=== PATIENT | female | born 1940 | race Caucasian/White ===

== ENCOUNTER 2019-02-28 15:22 | Inpatient (IN) | payer MEDICARE, BC ==
[~2019-02-28] VITALS: Ht 167.6 cm; Wt 96.4 kg
[~2019-02-28 15:22] MED LIST: CARDIZEM CD 24240 MG PO; COUMADIN 3MG3 MG/TAB PO; FEMARA PO; OSCAL 500 TAB500 MG PO; PRILOSEC 20MG20 MG PO; TOPROL XL 50MG50 MG PO; VESICARE 5MG5 MG PO; VITAMIN D1000 IU PO; XARELTO20 MG PO; XGEVA120 MG/1.7 SC; ZOCOR 10MG10 MG PO
[2019-04-12] VITALS (13 sets, daily range): BP systolic 88–129; BP diastolic 37–64; PULSE 49–70; TEMP 9
[2019-04-12] MEDS ORDERED: FASLODEX250 MG/5 M IM (02:31)
[2019-04-12] MEDS ORDERED: KISQALI400 MG PO (02:32)
[2019-04-12] MEDS ORDERED: MACRODANTIN100 PO (02:36)
[2019-04-12] MEDS ORDERED: ZOCOR5 MG PO (05:35)
[2019-04-12] MEDS ORDERED: VENTOLIN0.09 MG IH (05:38)
[2019-04-12] MEDS ORDERED: XGEVA120 MG/1.7 SC (05:44)
--- NOTE | 2019-04-12 11:27 | NUR ---
PT TO ROOM 328 PER BED WITH REPORT FROM CHARLETTE ZHU PACU @1050. PT IS DROWSEY BUT AROUSES TO VERBAL. LUNGS CLEAR, BOWEL SOUNDS PRESENT. DRESSING TO LEFT HIP CDI WITH AQUACEL WITH TWO SPOTS OF DRAINAGE NOTED ON AQUACEL. PT TURNED TO SIDE AND WRINKLES SMOOTHED. IV TO PUMP, TEDS AND SCD BILATERALLY. PT RESTING IN BED AND DENIES NEEDS. AT BEDSIDE.
--- NOTE | 2019-04-12 12:23 | NUR ---
PT HAD LG AMT OF EMESIS WHEN LOOKING AT LUNCH TRAY. IV ZOFRAN GIVEN. PT REQUESTING JELLO WHICH WAS PROVIDED.
--- NOTE | 2019-04-12 13:37 | NUR ---
Initial visit; Patient and her thanked Kennel Manager Dog Track for looking in on her and offering prayer and spiritual care. Kennel Manager Dog Track will follow up.
--- NOTE | 2019-04-12 16:32 | NUR ---
Dough Maker met with the patient and her , Venkata (ph#[phone]) to discuss discharge planning. Patient lives in [place], [place] with her . Patient's primary care physician is Dr. Jose Farias in [place] and patient obtains medications at [facility] also in [place]. Patient reports independence with ADLS prior to surgery and has a cane and walker at home for use as needed. Patient states she wants to go to [facility] upon discharge. Patient states she will need to think about a second preference. JUAN PABLO presented Patient Choice Form. Patient understood and signed. SW placed form in patient chart. JUAN PABLO sent referral to [facility] and spoke with Donna coordinator who will follow up on possible weekend admission. SW to continue to follow.
--- NOTE | 2019-04-12 18:51 | NUR ---
REPORTTO BRAD ZHU.
[2019-04-13] VITALS (7 sets, daily range): BP systolic 89–97; BP diastolic 42–60; PULSE 70–85; TEMP 97.7–98.6
--- NOTE | 2019-04-13 03:27 | NUR ---
Patient noted to have low blood pressure when I came on shift, 88/51 and 90/55. Walker Peace notified about hypotension. He stated that if her blood pressure dropped lower I could bolus 500ml NS over an hour. Patient has been doing well and continuing to monitor blood pressure. Cardizem held. Patient states no pain, until she gets up to walk. Ambulated a couple feet past the bedroom thresh hold. Tolerated this well. Aquacell has scant drainage present. Will continue to monitor patient.
--- NOTE | 2019-04-13 06:35 | NUR ---
awake resting in bed, Dr Benavidez in to see patient, bedside shift report received from Jose Sotomayor
[2019-04-13 07:03] LABS: HEMATOCRIT 28.7 % (37.0-47.0); HEMOGLOBIN 9.3 g/dl (12.5-16.0)
--- NOTE | 2019-04-13 07:19 | NUR ---
repositioned up in bed to eat breakfast
--- NOTE | 2019-04-13 08:00 | NUR ---
resting in bed and has had breakfast and tolerated well, full assessment completed, see interventions for further info, c/o pain to left knee and medicated with hydrocodone 7.5mg 2 tabs,
--- NOTE | 2019-04-13 09:15 | NUR ---
physical therapy in to work with patient, assisted up and ambulated out to [place] and then back to room and into recliner
--- NOTE | 2019-04-13 11:03 | NUR ---
was assisted back into bed and positioned for comfort, denied dizziness when she was ambulating earlier with therapy but says she did have some while sitting in the recliner
--- NOTE | 2019-04-13 11:52 | NUR ---
sitting up in bed eating lunch
--- NOTE | 2019-04-13 13:28 | NUR ---
ambulated out to [place] with physcial therapy for group exercises
--- NOTE | 2019-04-13 14:00 | NUR ---
back to room after therapy and remains up in recliner, springer catheter discontinued, tolerated well, instructed her to drink plenty of water that her urine is concentrated and to call when she needs up to bathroom, verbalizes understanding
--- NOTE | 2019-04-13 16:34 | NUR ---
in bed and appears to be sleeping, resp quiet and easy
--- NOTE | 2019-04-13 17:13 | NUR ---
assisted up to bathroom and was able to void, then back to bed
--- NOTE | 2019-04-13 17:39 | NUR ---
Operations Research Manager faxed updates to [facility] to continue to follow.
--- NOTE | 2019-04-13 18:53 | NUR ---
bedside shift report given to MARKO Sotomayor
[2019-04-14] VITALS (7 sets, daily range): BP systolic 98–122; BP diastolic 52–72; PULSE 75–98; TEMP 98–98.9
--- NOTE | 2019-04-14 04:37 | NUR ---
Patient has rested well througout the night. Pain medication administered as needed. Current regimen effective. Continent of urine. Overall, an uneventful night. Will continue to monitor.
--- NOTE | 2019-04-14 11:50 | NUR ---
Care Transition Coordinator met spoke with Juan at [facility] who advised they will be able to accept patient tomorrow pending to call. SW took down contact information for dr fawn bearden as well as nurse report and placed note in patient chart. SW provided this update to MARKO Fallon. Patient states her , Venkata will provide transportation to [facility] upon discharge. SW asked again about a second preference if [facility] could not accept and patient stated [facility]. SW presented IM form to patient. Patient expressed understanding and provided signature. SW placed IM form in chart. SW to continue to follow.
[2019-04-14] MEDS ORDERED: XARELTO10 MG PO (13:30)
[2019-04-14] MEDS ORDERED: NORCO 325 MG-7.1 TAB PO (13:31)
[2019-04-14] MEDS ORDERED: ULTRAM 50MG TAB50 MG PO (13:32)
--- NOTE | 2019-04-14 16:15 | NUR ---
School Lunch Monitor spoke to Janay Nurse Practitioner who advised she would be contacting Dr. Shasta Figueredo for dr to dr wyatt. JUAN PABLO to continue to follow as needed.
--- NOTE | 2019-04-14 18:24 | NUR ---
Pt was tired after second round of physical therapy. Stayed in bed and rested in the afternoon. Ambulated to the bathroom at 1615, stated leg felt stiff after getting up from bed. Stated feeling "miserable" when ambulating and was in pain. Returned to bed, SCDs on, and call light in reach. Ate dinner and is sitting up resting. Pt states no complaints at this time. Reported off to primary nurse Ana ZHU.
--- NOTE | 2019-04-14 20:51 | NUR ---
Patient doing well. Assessment completed. A/o with VSS. Patient ambulated in hallway and to bathroom with no issues. Minimal pain. Aquacell to left hip. Denies other needs at this time. Call light within reach, will continue to monitor
[2019-04-15 03:26] VITALS: BP 111/56; PULSE 87; TEMP 98.1
[2019-04-15 06:27] LABS: MEAN CELL VOLUME 108 fl (80.0-100.0); MEAN CORPUSCULAR HGB CONC 33 g/dl (33.0-37.0); MEAN PLATELET VOLUME 9.6 fl (7.4-10.4); PLATELET COUNT 155 K/mm3 (130-400); RED BLOOD COUNT 2.49 M/mm3 (4.10-5.30); REDCELL DISTRIBUTION WIDTH-CV 14.8 % (11.5-14.5)
[2019-04-15 06:34] LABS: MEAN CORPUSCULAR HEMOGLOBIN 36 pg (27.0-31.0)
--- NOTE | 2019-04-15 07:30 | NUR ---
Patient resting in bed during shift report, patient was alert and oriented, answered questions appropriately. Patient denied pain or needs, stated that she was afraid she had caught a cold, was sneezing and had some nasal congestion. It was reported that patient was vomiting around 0715. Patient had one episode of a small amount of emesis that appeared to be mostly mucous. Patient stated that she believes that it was caused by the post nasal drip she has had for the last day, states that this sometimes happens at home when she has a cold. Administered zofran to treat residual nausea, Dr. Benavidez notified of episode. Patient denies further needs at this time, call light within reach.
[2019-04-15 08:24] VITALS: BP 110/57; PULSE 99; TEMP 98.6
[2019-04-15 09:25] LABS: BAND 24 % (0-10); EOSINOPHIL 3 % (0-4); LYMPHOCYTE 5 % (20.0-51.0); METAMYELOCYTE 1 % (0-0); NEUTROPHILS 59 % (42.0-75.2)
[2019-04-15 09:26] LABS: ANISOCYTOSIS 1+; HYPOCHROMIA 3+; PLATELET ESTIMATE NORMAL (NORMAL)
[2019-04-15 09:47] VITALS: BP 110/57; PULSE 99; TEMP 98.6
--- NOTE | 2019-04-15 11:00 | NUR ---
Report called to Ck, discussed wound care, discharge medications, and PT orders. Changed aquacel to left hip, dressing that was removed had a small amount of dried blood from incision, incision was well approximated, justin intact; no indication of redness, swelling, or drainage. INT removed from right wrist, hemostasis achieved, catheter removed intact. Discharge paperwork, follow up visit information, and discharge instructions sent with patient along with scripts for discharge medications. Administered PRN pain medication prior to discharge. Patient confirms she has gathered all personal belongings, patient escorted out via wheelchair by surgical staff to private vehicle.
--- NOTE | 2019-04-15 11:21 | NUR ---
JUA NPABLO consulted for DC to [facility], Marge Scott will transport to [facility] PAB[facility] faxed [phone] discharge. Nothing follows.
== END 2019-04-15 10:58 | disposition swing bed (61) | DRG 470 ==
LOC: JCC 04-12 05:06
PROVIDERS: ADMIT Orthopaedic Surgery
PROC: 0SRB03A Replacement of Left Hip Joint with Ceramic Synthetic Substitute, Uncemented, Open Approach (ICD-10-PCS; principal; 2019-04-12 07:30)
DX: M16.12 Unilateral primary osteoarthritis, left hip (principal); C50.919 Malignant neoplasm of unspecified site of unspecified female breast; I95.9 Hypotension, unspecified; R11.2 Nausea with vomiting, unspecified
CPT/HCPCS: A4314; A9284; C1713; C1776; J0690; J1170; J2250; J2270; J2405; J2704; J3010; J3370; J7030; J7120

== ENCOUNTER → 2019-04-05 | Outpatient (CLI) | payer MEDICARE, BC ==
[~2019-04-05] MED LIST changes: +CALCIUM + D 5001 TAB PO; +LOPRESSOR 550 MG/TAB PO; -OSCAL 500 TAB500 MG PO; -TOPROL XL 50MG50 MG PO
[2019-04-05 12:25] LABS: HEMATOCRIT 35.9 % (37.0-47.0); MEAN CELL VOLUME 108 fl (80.0-100.0); MEAN CORPUSCULAR HEMOGLOBIN 36 pg (27.0-31.0); MEAN CORPUSCULAR HGB CONC 33 g/dl (33.0-37.0); MEAN PLATELET VOLUME 9.6 fl (7.4-10.4); PLATELET COUNT 239 K/mm3 (130-400); RED BLOOD COUNT 3.33 M/mm3 (4.10-5.30); REDCELL DISTRIBUTION WIDTH-CV 14.6 % (11.5-14.5)
[2019-04-05 12:55] LABS: BAND 1 % (0-10); EOSINOPHIL 1 % (0-4); LYMPHOCYTE 24 % (20.0-51.0); NEUTROPHILS 70 % (42.0-75.2); PLATELET ESTIMATE NORMAL (NORMAL)
[2019-04-06 12:49] LABS: HEPATITIS B SURFACE ANTIGEN Negative (Negative); HIV ANTIGEN-ANTIBODY COMBO-AMS Non-reactive (Negative)
== END ==
LOC: COL.LAB 12:05
PROVIDERS: Orthopaedic Surgery
DX: Z01.812 Encounter for preprocedural laboratory examination (principal); M16.12 Unilateral primary osteoarthritis, left hip